=== PATIENT | female | born 1990 | race Caucasian/White ===

== ENCOUNTER 2018-06-15 10:03 | Emergency (ER) | payer OTHER ==
--- NOTE | 2018-06-15 11:28 | ED Physician Documentation ---
PD HPI URI - Stated complaint Stated Complaint: L SHOULDER PX - Chief complaint Chief Complaint: Cardiac - History obtained from History obtained from: Patient - History of Present Illness Timing - onset: How many days ago (2) Timing duration: Days (She had some pain in the left chest area along with some nasal congestion mild cough 2 days ago. The pain improved and she had only mild cough. However the pain today increased significantly this morning. It hurts with deep breathing. There is no pain with movement of the shoulder. She has had only slight increase in the coughing and congestion. She denies any hemoptysis nor purulent sputum. She has had some chills without fevers. She has not had any vomiting or diarrhea.) Timing details: Gradual onset, Still present (Worse this morning.) Associated symptoms: Nasal congestion, Dry cough, Chest pain (left chest laterally and up to left shoulder), Other (denies abd pain). No: Fever, Swollen nodes, Dyspnea Contributing factors: No: Sick contact, Travel, Immunocompromised Similar symptoms before: Has not had sx before Recently seen: Not recently seen Review of Systems Constitutional: reports: Myalgias. denies: Fever, Chills Nose: reports: Congestion. denies: Rhinorrhea / runny nose Throat: denies: Sore throat Cardiac: denies: Palpitations, Pedal edema, Calf pain Respiratory: reports: Cough. 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 - Present Medications Home Medications: Ambulatory Orders Medication Instructions Recorded Confirmed Metformin HCl [Metformin HCl ER] 1 tab PO BID 12/16/14 06/15/18 Dexamethasone [Decadron] 4 mg PO DAILY #5 tablet 06/15/18 Doxycycline Hyclate 100 mg PO BID #20 capsule 06/15/18 Hydrocodone/Acetaminophen [[place] 1 each PO Q6H PRN #15 tablet 06/15/18 5-325 Tablet] Naproxen 375 mg PO BID #20 tablet 06/15/18 - Allergies Allergies/Adverse Reactions: Allergies Allergy/AdvReac Type Severity Reaction Status Date / Time No Known Drug Allergies Allergy Verified 06/15/18 10:16 - Living Situation Living Situation: reports: With spouse/s.o. Living Arrangement: reports: At home - Social History Does the pt smoke?: No Smoking Status: Never smoker Does the pt drink ETOH?: No Does the pt have substance abuse?: No - Family History Family history: denies: CAD, Venous thromboembolism PD ED PE NORMAL - Vitals Vital signs reviewed: Yes - General General: Alert and oriented X 3, Well developed/nourished, Other (appears uncomfortable with pain worse on breathing. ) - HEENT HEENT: Moist mucous membranes, Pharynx benign - Neck Neck: Supple, no meningeal sign, No adenopathy - Cardiac Cardiac: RRR, No murmur - Respiratory Respiratory: No: Clear bilaterally (mild congestion left base. rest of lungs clear. no wheezing. ) - Abdomen Abdomen: Normal bowel sounds, Soft, Non tender, Non distended - Back Back: No CVA TTP - Derm Derm: Normal color, Warm and dry, No rash - Extremities Extremities: No deformity, No tenderness to palpate, Normal ROM s pain, No edema, No calf tenderness / cord - Neuro Neuro: Alert and oriented X 3, No motor deficit, Normal speech Results - Vitals Vitals: Vital Signs - 24 hr 06/15/18 06/15/18 06/15/18 10:14 12:37 14:25 Temperature 37.1 C 36.4 C L 36.6 C Heart Rate 106 H 93 84 Respiratory 18 18 16 Rate Blood Pressure 149/106 H 147/95 H 146/90 H O2 Saturation 98 99 99 Oxygen O2 Source Room air - Labs Labs: Laboratory Tests 06/15/18 06/15/18 12:25 12:25 WBC 12.7 H RBC 5.11 Hgb 14.2 Hct 43.1 MCV 84.5 MCH 27.8 MCHC 32.9 RDW 13.1 Plt Count 243 MPV 10.5 Neut # (Auto) 9.5 H Lymph # (Auto) 2.3 [place] # (Auto) 0.7 Eos # (Auto) 0.1 Baso # (Auto) 0.1 Absolute Nucleated RBC 0.00 Nucleated RBC % 0.0 Sodium 134 L Potassium 3.7 Chloride 99 L Carbon Dioxide 23 Anion Gap 12.0 BUN 7 Creatinine 0.4 Estimated GFR (MDRD) 191 Glucose 244 H Calcium 9.3 Total Bilirubin 0.6 AST 16 ALT 24 Alkaline Phosphatase 103 Total Protein 8.6 H Albumin 4.0 Globulin 4.6 H Albumin/Globulin Ratio 0.9 L Lipase 21 L - Rads (name of study) chest xray Radiology: Prelim report reviewed (Left lower lobe consolidation is suspicious for pneumonia), EMP read contemporaneously (Small infiltrate in the left lower lobe. No pneumothorax. No effusion.), See rad report PD MEDICAL DECISION MAKING - ED course Complexity details: considered differential (She has had a bit of a cough and congestion but not as significant cough. She has pain in the left side of the chest worse with breathing and coughing. She is slightly tachycardic seeming r elated to the pain. Her oxygen level is good. She has not had a recent travel. There is no edema nor calf tenderness. There is no family history of embolic disorder. She has a chest x-ray showing a small infiltrate in the left base.), d/w patient Departure - Departure Disposition: 01 Home, Self Care Clinical Impression: Left-sided chest pain Pneumonia Qualifiers: Pneumonia type: due to unspecified organism Laterality: left Lung location: lower lobe of lung Qualified Code(s): J18.1 - Lobar pneumonia, unspecified organism Condition: Stable Record reviewed to determine appropriate education?: Yes Instructions: ED Chest Pain Pleurisy, ED Pneumonia Adult Prescriptions: Dexamethasone [Decadron] 4 mg PO DAILY #5 tablet Doxycycline Hyclate 100 mg PO BID #20 capsule Hydrocodone/Acetaminophen [[place] 5-325 Tablet] 1 each PO Q6H PRN #15 tablet PRN Reason: Pain Naproxen 375 mg PO BID #20 tablet Comments: Your chest x-ray shows a small pneumonia on the left lower area where you are hurting. Presume this is a bacterial infection was treated with doxycycline antibiotic. Also treated with anti-inflammatories of Decadron steroid daily for 5 days and naproxen twice daily for inflammation and pain. To that add Tylenol or hydrocodone if needed for pain. Recheck if not improving over the next couple of days. Discharge Date/Time: 06/15/18 14:35
[2018-06-15] MEDS ORDERED: MAG HYDROX/AL HYDROX/SIMETH 30 ML UDC PO STA (12:02)
[2018-06-15] MEDS ORDERED: LIDOCAINE VISCOUS 2% 15 ML UDC MM STA (12:02)
[2018-06-15] MEDS ORDERED: ACETAMINOPHEN 1,000 MG/100 ML 100 ML IV STA (12:02)
[2018-06-15] MEDS ORDERED: ONDANSETRON 4 MG/2 ML VIAL IVP STA (12:02)
[2018-06-15] MEDS ORDERED: KETOROLAC 30 MG/ML VIAL IVP STA (12:02)
[2018-06-15 13:06] LABS: BASOPHILS # (AUTO) 0.1 10^3/uL (0.0-0.1); BASOPHILS % (AUTO) 0.8 %; EOSINOPHILS # (AUTO) 0.1 10^3/uL (0.0-0.7); EOSINOPHILS % (AUTO) 0.9 %; HGB - HEMOGLOBIN 14.2 g/dL (12.0-16.0); LYMPHOCYTES # (AUTO) 2.3 10^3/uL (1.5-3.5); LYMPHOCYTES % (AUTO) 18.1 %; MEAN CORPUSCULAR HEMOGLOBIN 27.8 pg (27.0-31.0); MEAN CORPUSCULAR HGB CONC 32.9 g/dL (32.0-36.0); MEAN CORPUSCULAR VOLUME 84.5 fL (81.0-99.0); MEAN PLATELET VOLUME 10.5 fL (7.9-10.8); MONOCYTES # (AUTO) 0.7 10^3/uL (0.0-1.0); MONOCYTES % (AUTO) 5.7 %; NEUTROPHILS # (AUTO) 9.5 10^3/uL (1.5-6.6); NEUTROPHILS % (AUTO) 74.5 %; PLT - PLATELET COUNT 243 10^3/uL (130-450); RED BLOOD COUNT 5.11 10^6/uL (4.20-5.40); RED CELL DISTRIBUTION WIDTH 13.1 % (12.0-15.0); WHITE BLOOD COUNT 12.7 x10^3/uL (4.8-10.8)
[2018-06-15 13:19] LABS: ALBUMIN/GLOBULIN RATIO 0.9 (1.0-2.2); BILIRUBIN,TOTAL 0.6 mg/dL (0.2-1.0); CALCIUM 9.3 mg/dL (8.5-10.3); CREATININE 0.4 mg/dL (0.4-1.0); TOTAL PROTEIN 8.6 g/dL (6.7-8.2)
--- NOTE | 2018-06-15 13:20 | XRAY Report ---
Reason: left chest pain and cough Procedure Date: 06/15/2018 Accession Number: [id number] / [id number] Procedure: XR - Chest 2 View X-Ray CPT Code: 48211 FULL RESULT: EXAM: CHEST RADIOGRAPHY EXAM DATE: 06/15/2018 12:49 PM. CLINICAL HISTORY: Left chest pain and cough. COMPARISON: CHEST 2 VIEW PA/LAT 12/16/2014 7:42 PM. TECHNIQUE: 2 views. FINDINGS: Lungs/Pleura: There is a left lower lobe consolidation. No pleural effusion. No pneumothorax. Normal volumes. Mediastinum: Heart and mediastinal contours are normal. Other: None. IMPRESSION: Left lower lobe consolidation is suspicious for pneumonia. RADIA
[2018-06-15] MEDS ORDERED: cefTRIAXone 1 GM VIAL IVP STA (13:29)
[2018-06-15] MEDS ORDERED: DOXYCYCLINE 100 MG TABLET PO STA (14:14)
[2018-06-15 14:26] VITALS: BP 146/90
== END 2018-06-15 14:35 | disposition home or self-care (01) ==
LOC: ED 10:03
DX: R07.9 Chest pain, unspecified (principal); J18.1 Lobar pneumonia, unspecified organism; R00.0 Tachycardia, unspecified; E11.9 Type 2 diabetes mellitus without complications; Z79.84 Long term (current) use of oral hypoglycemic drugs
CPT/HCPCS: 36415; 71046; 80053; 83690; 85025; 96365; 96375; 99283; 99284; A9270; J0131

== ENCOUNTER 2021-02-23 13:51 | Emergency (ER) | payer OTHER ==
--- NOTE | 2021-02-23 14:57 | XRAY Report ---
PROCEDURE: Chest 2 View X-Ray INDICATIONS: Chest pain TECHNIQUE: 2 view(s) of the chest. COMPARISON: 06/15/2018 FINDINGS: Surgical changes and devices: None. Lungs and pleura: No pleural effusions or pneumothorax. Lungs are clear. Mediastinum: Mediastinal contours are normal. Heart size is normal. Bones and chest wall: No suspicious bony abnormalities. Soft tissues appear unremarkable. IMPRESSION: No evidence acute pulmonary process. Reviewed by: Bob Mayorga MD on 02/23/2021 2:56 PM [facility] Approved by: Bob Mayorga MD on 02/23/2021 2:56 PM [facility] Station ID: [id number]
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
[2021-02-23 16:02] VITALS: BP 155/84
== END 2021-02-23 16:02 | disposition home or self-care (01) ==
LOC: ED 13:51
DX: S30.811A Abrasion of abdominal wall, initial encounter (principal); V49.40XA Driver injured in collision with unspecified motor vehicles in traffic accident, initial encounter; E11.9 Type 2 diabetes mellitus without complications
CPT/HCPCS: 99283